=== PATIENT | male | born 1935 | race Caucasian/White ===

== ENCOUNTER 2021-03-13 06:39 | Inpatient (IN) | payer OTHER ==
[2021-03-13 06:47] VITALS: BMI 24.4
[2021-03-13 09:38] LABS: ACTIVATED PTT 36.3 SECONDS (25.2-36.5); INR 1.18 (0.83-1.09); PROTHROMBIN TIME (PATIENT) 14.5 SEC (9.7-13.0)
[2021-03-13 09:44] LABS: BASO % 0.4 % (0-2.0); WHITE BLOOD COUNT 9.8 K/mm3 (4.0-10.0)
[2021-03-13 09:53] LABS: EOS % 3.3 % (0-4.5); HEMATOCRIT 39.8 % (35.4-49); HEMOGLOBIN 13.3 GM/dL (11.7-16.9); LYMPH % 8.4 % (8-40); MCH 29.8 pg (25.7-33.7); MCHC 33.3 g/dl (32.0-35.9); MEAN CELL VOLUME 89.5 fl (80-96); MONO % 7.1 % (3.8-10.2); NEUT % 80.8 % (42.8-82.8); PLATELET COUNT 154 10^3/uL (134-434); RBC 4.45 M/mm3 (4.00-5.60); RDW 14.5 % (11.9-15.9)
[2021-03-13 10:00] LABS: CHLORIDE 110 mmol/L (98-107); SODIUM 141 mmol/L (136-145)
[2021-03-13 10:03] LABS: ANION GAP 6 MMOL/L (8-16); CALCIUM 8.6 mg/dL (8.5-10.1); CO2 24 mmol/L (21-32); GLUCOSE,RANDOM 82 mg/dL (74-106)
[2021-03-13 10:04] LABS: ALBUMIN 3.8 g/dl (3.4-5.0)
[2021-03-13 10:06] LABS: CREATININE 1.6 mg/dL (0.55-1.3); SGOT/AST 23 U/L (15-37)
[2021-03-13 10:07] LABS: SGPT/ALT 25 U/L (13-61)
[2021-03-13 10:08] LABS: BILIRUBIN,TOTAL 0.5 mg/dL (0.2-1); TOT PROT 7.2 g/dl (6.4-8.2)
[2021-03-13 10:09] LABS: ALK PHOS 54 U/L (45-117)
[2021-03-13 10:12] LABS: N-TERMINAL BNP 296.4 pg/ml (5-450)
[2021-03-13] MEDS ORDERED: ACETAMINOPHEN 325 MG TABLET (FP) PO PRN (11:36)
[2021-03-13 14:07] LABS: URINE APPEARANCE CLEAR; URINE BILIRUBIN NEGATIVE (NEGATIVE); URINE COLOR YELLOW; URINE GLUCOSE (UA) NEGATIVE (NEGATIVE); URINE KETONE NEGATIVE (NEGATIVE); URINE LEUK ESTERASE NEGATIVE (NEGATIVE); URINE NITRITE NEGATIVE (NEGATIVE); URINE PROTEIN TRACE (NEGATIVE); URINE UROBILINOGEN 0.2 mg/dL (0.2-1.0)
[2021-03-14 08:04] LABS: BASO % 0.5 % (0-2.0); EOS % 8.2 % (0-4.5); HEMATOCRIT 37.5 % (35.4-49); HEMOGLOBIN 12.7 GM/dL (11.7-16.9); LYMPH % 17.2 % (8-40); MCH 30.4 pg (25.7-33.7); MCHC 33.9 g/dl (32.0-35.9); MEAN CELL VOLUME 89.6 fl (80-96); MEAN PLT VOLUME 8.9 fl (7.5-11.1); MONO % 7.5 % (3.8-10.2); NEUT % 66.6 % (42.8-82.8); PLATELET COUNT 157 10^3/uL (134-434); RBC 4.18 M/mm3 (4.00-5.60); RDW 14.7 % (11.9-15.9); WHITE BLOOD COUNT 6.3 K/mm3 (4.0-10.0)
[2021-03-14] MEDS ORDERED: ALBUTEROL SO4 HFA INHALER IH PRN (16:30)
[2021-03-14] MEDS ORDERED: SODIUM CHLORIDE 1,000 ML IV SCH (16:45)
[2021-03-14] MEDS: amLODIPine BESYLATE 5 MG TABLET (FP) PO SCH (20:52)
[2021-03-14] MEDS: APIXABAN 2.5 MG TABLET PO SCH (21:44)
[2021-03-14] MEDS: ATORVASTATIN CA 20 MG TABLET (FP) PO SCH (21:44)
[2021-03-14] MEDS ORDERED: APIXABAN 5 MG TABLET PO SCH (22:00)
[2021-03-15 08:22] LABS: BASO % 0.5 % (0-2.0); HEMOGLOBIN 12.3 GM/dL (11.7-16.9); LYMPH % 20.1 % (8-40); MCH 30.3 pg (25.7-33.7); MCHC 34.2 g/dl (32.0-35.9); MEAN CELL VOLUME 88.5 fl (80-96); MEAN PLT VOLUME 8.4 fl (7.5-11.1); MONO % 7.9 % (3.8-10.2); NEUT % 62.5 % (42.8-82.8); PLATELET COUNT 142 10^3/uL (134-434); RBC 4.07 M/mm3 (4.00-5.60); RDW 14.5 % (11.9-15.9); WHITE BLOOD COUNT 5.8 K/mm3 (4.0-10.0)
[2021-03-15 08:38] LABS: CALCIUM 8.3 mg/dL (8.5-10.1)
[2021-03-15 08:39] LABS: MAGNESIUM 2.2 mg/dL (1.8-2.4)
[2021-03-15 08:42] LABS: CREATININE 1.5 mg/dL (0.55-1.3); PHOSPHOROUS 2.9 mg/dL (2.5-4.9)
[2021-03-15 08:43] LABS: BLOOD UREA NITROGEN 34.1 mg/dL (7-18)
[2021-03-15] MEDS ORDERED: ALLOPURINOL 300 MG TABLET (FP) PO SCH (10:00)
[2021-03-15] MEDS ORDERED: DONEPEZIL HCL 5 MG TABLET (FP) PO SCH (10:00)
[2021-03-15] MEDS: ALLOPURINOL 100 MG TABLET (FP) PO SCH (10:12)
[2021-03-15] MEDS: FINASTERIDE 5 MG TABLET (FP) PO SCH (10:12)
[2021-03-15] MEDS: ASPIRIN 81 MG CHEWABLE TABLETS PO SCH (10:13)
[2021-03-15] MEDS: TAMSULOSIN HCL 0.4 MG CAP PO SCH (10:13)
[2021-03-15] MEDS: APIXABAN 2.5 MG TABLET PO SCH ×2 (10:14→21:23)
[2021-03-15] MEDS ORDERED: SODIUM CHLORIDE 1,000 ML IV SCH (11:15)
[2021-03-15] MEDS: ATORVASTATIN CA 20 MG TABLET (FP) PO SCH (21:23)
[2021-03-15] MEDS: amLODIPine BESYLATE 5 MG TABLET (FP) PO SCH (21:23)
[2021-03-16 08:00] LABS: CALCIUM 8.4 mg/dL (8.5-10.1)
[2021-03-16 08:01] LABS: BASO % 0.6 % (0-2.0); BLOOD UREA NITROGEN 30.2 mg/dL (7-18); EOS % 9.1 % (0-4.5); HEMATOCRIT 37.3 % (35.4-49); HEMOGLOBIN 12.4 GM/dL (11.7-16.9); LYMPH % 21.6 % (8-40); MAGNESIUM 2.2 mg/dL (1.8-2.4); MCH 29.8 pg (25.7-33.7); MCHC 33.2 g/dl (32.0-35.9); MEAN CELL VOLUME 89.6 fl (80-96); MEAN PLT VOLUME 8.8 fl (7.5-11.1); MONO % 7.8 % (3.8-10.2); NEUT % 60.9 % (42.8-82.8); PLATELET COUNT 143 10^3/uL (134-434); RBC 4.16 M/mm3 (4.00-5.60); RDW 14.3 % (11.9-15.9); WHITE BLOOD COUNT 5.6 K/mm3 (4.0-10.0)
[2021-03-16 08:03] LABS: CREATININE 1.3 mg/dL (0.55-1.3)
[2021-03-16 08:04] LABS: PHOSPHOROUS 3.1 mg/dL (2.5-4.9)
[2021-03-16] MEDS: ALLOPURINOL 100 MG TABLET (FP) PO SCH (10:38)
[2021-03-16] MEDS: APIXABAN 2.5 MG TABLET PO SCH (10:38)
[2021-03-16] MEDS: ASPIRIN 81 MG CHEWABLE TABLETS PO SCH (10:38)
[2021-03-16] MEDS: FINASTERIDE 5 MG TABLET (FP) PO SCH (10:38)
[2021-03-16] MEDS: TAMSULOSIN HCL 0.4 MG CAP PO SCH (10:38)
[2021-03-16 12:41] VITALS: BP 122/81; PULSE 60; TEMP 98.3
== END 2021-03-16 19:08 | DRG 683 ==
LOC: JER 06:39 → JERBED 10:18 → OBSVTOIN 11:36 → J4W 21:56
PROVIDERS: ADMIT Internal Medicine; ATTEND Internal Medicine
DX: N17.9 Acute kidney failure, unspecified (principal); I13.0 Hypertensive heart and chronic kidney disease with heart failure and stage 1 through stage 4 chronic kidney disease, or unspecified chronic kidney disease; I50.32 Chronic diastolic (congestive) heart failure; R55 Syncope and collapse; F03.90 Unspecified dementia, unspecified severity, without behavioral disturbance, psychotic disturbance, mood disturbance, and anxiety; N40.0 Benign prostatic hyperplasia without lower urinary tract symptoms; N18.2 Chronic kidney disease, stage 2 (mild); M10.9 Gout, unspecified; M25.511 Pain in right shoulder; E86.0 Dehydration; W18.39XA Other fall on same level, initial encounter; Y92.092 Bedroom in other non-institutional residence as the place of occurrence of the external cause
CPT/HCPCS: 36415; 70450-TC; 71045-TC-FY; 72125-TC; 73030-TC-RT-FY; 80048; 80053; 81003; 82550; 82553; 83735; 83880; 84100; 84484; 85025; 85610; 85730; 87086; 93005; 93010; 93306-TC; 93880-TC; 97116-GP; 97162-GP; 99285-25; C9803; G0378; U0003; U0005

== ENCOUNTER 2021-07-28 00:11 | Observation (INO) | payer OTHER ==
[2021-07-28 01:05] VITALS: BMI 27.3
[2021-07-28 01:55] LABS: EOS % 7.1 % (0-4.5); HEMATOCRIT 38.2 % (35.4-49); HEMOGLOBIN 12.7 GM/dL (11.7-16.9); LYMPH % 14.1 % (8-40); MCH 29.1 pg (25.7-33.7); MCHC 33.3 g/dl (32.0-35.9); MEAN CELL VOLUME 87.5 fl (80-96); MEAN PLT VOLUME 8.6 fl (7.5-11.1); MONO % 7.2 % (3.8-10.2); NEUT % 70.6 % (42.8-82.8); PLATELET COUNT 148 10^3/uL (134-434); RBC 4.37 M/mm3 (4.00-5.60); RDW 14.9 % (11.9-15.9); WHITE BLOOD COUNT 6.4 K/mm3 (4.0-10.0)
[2021-07-28 02:07] LABS: INR 1.26 (0.83-1.09); PROTHROMBIN TIME (PATIENT) 14.5 SEC (9.7-13.0)
[2021-07-28 02:10] LABS: ACTIVATED PTT 35.4 SECONDS (25.2-36.5)
[2021-07-28 02:15] LABS: CALCIUM 8.9 mg/dL (8.5-10.1)
[2021-07-28 02:16] LABS: ALBUMIN 3.8 g/dl (3.4-5.0); BLOOD UREA NITROGEN 26.5 mg/dL (7-18); MAGNESIUM 2.3 mg/dL (1.8-2.4)
[2021-07-28 02:19] LABS: CREATININE 1.6 mg/dL (0.55-1.3); PHOSPHOROUS 3.4 mg/dL (2.5-4.9)
[2021-07-28 02:21] LABS: BILIRUBIN,TOTAL 0.3 mg/dL (0.2-1); TOT PROT 6.8 g/dl (6.4-8.2)
[2021-07-28 02:24] LABS: N-TERMINAL BNP 455.4 pg/ml (5-450)
[2021-07-28] MEDS ORDERED: DOCUSATE SODIUM 100 MG CAPSULE (FP) PO PRN (04:35)
[2021-07-28] MEDS ORDERED: SENNOSIDES 8.6MG TABLET (FP) PO PRN (04:35)
[2021-07-28] MEDS ORDERED: MELATONIN 5 MG TABLETS PO PRN (04:36)
[2021-07-28] MEDS: LACTATED RINGERS SOLUTION 1,000 ML/1,000 ML INFUS.BAG IV SCH (06:15)
[2021-07-28 08:23] LABS: BASO % 0.9 % (0-2.0); EOS % 9.2 % (0-4.5); HEMATOCRIT 38.1 % (35.4-49); HEMOGLOBIN 12.1 GM/dL (11.7-16.9); LYMPH % 15.7 % (8-40); MCH 28.5 pg (25.7-33.7); MCHC 31.9 g/dl (32.0-35.9); MEAN CELL VOLUME 89.2 fl (80-96); MEAN PLT VOLUME 9.4 fl (7.5-11.1); MONO % 8.8 % (3.8-10.2); NEUT % 65.4 % (42.8-82.8); PLATELET COUNT 148 10^3/uL (134-434); RBC 4.27 M/mm3 (4.00-5.60); RDW 14.8 % (11.9-15.9); WHITE BLOOD COUNT 5.6 K/mm3 (4.0-10.0)
[2021-07-28 08:48] LABS: ALBUMIN 3.4 g/dl (3.4-5.0); CALCIUM 8.8 mg/dL (8.5-10.1); MAGNESIUM 2.3 mg/dL (1.8-2.4)
[2021-07-28 08:49] LABS: BLOOD UREA NITROGEN 24.8 mg/dL (7-18)
[2021-07-28 08:51] LABS: CREATININE 1.4 mg/dL (0.55-1.3)
[2021-07-28 08:53] LABS: BILIRUBIN,TOTAL 0.4 mg/dL (0.2-1)
[2021-07-28] MEDS ORDERED: TETRAHYDROZOLINE HCL EYE DROPS OU PRN (15:44)
[2021-07-28 20:05] LABS: EPI CELLS 7 /uL (0-25.1); HYALINE CASTS 1 /uL (0-3.1); PH,URINE 6.5 (5.0-8.0); URINE APPEARANCE CLEAR; URINE BACTERIA 19 /uL (0-1359); URINE BILIRUBIN NEGATIVE (NEGATIVE); URINE COLOR YELLOW; URINE GLUCOSE (UA) NEGATIVE (NEGATIVE); URINE KETONE NEGATIVE (NEGATIVE); URINE LEUK ESTERASE TRACE (NEGATIVE); URINE NITRITE NEGATIVE (NEGATIVE); URINE PROTEIN NEGATIVE (NEGATIVE); URINE RBC 4 /uL (0-23.9); URINE UROBILINOGEN 0.2 mg/dL (0.2-1.0); URINE WBC 30 /uL (0-25.8)
[2021-07-29 08:18] LABS: HEMATOCRIT 34.8 % (35.4-49); HEMOGLOBIN 11.4 GM/dL (11.7-16.9); MCH 28.6 pg (25.7-33.7); MCHC 32.6 g/dl (32.0-35.9); MEAN CELL VOLUME 87.7 fl (80-96); MEAN PLT VOLUME 9.6 fl (7.5-11.1); PLATELET COUNT 145 10^3/uL (134-434); RBC 3.97 M/mm3 (4.00-5.60); RDW 14.7 % (11.9-15.9); WHITE BLOOD COUNT 4.6 K/mm3 (4.0-10.0)
[2021-07-29 08:44] LABS: CALCIUM 8.8 mg/dL (8.5-10.1)
[2021-07-29 08:45] LABS: BLOOD UREA NITROGEN 23.1 mg/dL (7-18)
[2021-07-29 08:46] LABS: CREATININE 1.3 mg/dL (0.55-1.3)
[2021-07-29] MEDS: LACTATED RINGERS SOLUTION 1,000 ML/1,000 ML INFUS.BAG IV SCH (09:31)
[2021-07-29 15:06] VITALS: BP 123/68; PULSE 67; TEMP 97.8
[2021-07-29] MEDS ORDERED: ATORVASTATIN CA 20 MG TABLET (FP) PO SCH (22:00)
[2021-07-30] MEDS ORDERED: ASPIRIN 81 MG CHEWABLE TABLETS PO SCH (10:00)
[2021-07-30] MEDS ORDERED: TAMSULOSIN HCL 0.4 MG CAP PO SCH (10:00)
== END 2021-07-29 17:00 ==
LOC: JER 00:11 → SUATTDRO 00:11 → JERBED 07:14 → J4W 12:54
PROVIDERS: ADMIT Internal Medicine; ATTEND Internal Medicine
PROC: 3E0337Z Introduction of Electrolytic and Water Balance Substance into Peripheral Vein, Percutaneous Approach (ICD-10-PCS; principal; 2021-07-28)
DX: I13.0 Hypertensive heart and chronic kidney disease with heart failure and stage 1 through stage 4 chronic kidney disease, or unspecified chronic kidney disease (principal); N18.2 Chronic kidney disease, stage 2 (mild); W18.39XA Other fall on same level, initial encounter; Y93.89 Activity, other specified; Y92.003 Bedroom of unspecified non-institutional (private) residence as the place of occurrence of the external cause; R55 Syncope and collapse; E78.5 Hyperlipidemia, unspecified; N40.0 Benign prostatic hyperplasia without lower urinary tract symptoms; M10.9 Gout, unspecified; N17.9 Acute kidney failure, unspecified; Z88.0 Allergy status to penicillin
CPT/HCPCS: 36415; 70450-TC; 71045-TC-FY; 72125-TC; 72170-TC-FY; 73030-TC-RT-FY; 76775-TC; 80048; 80053; 81003; 82550; 83605; 83735; 83880; 84100; 84443; 84484; 85025; 85027; 85610; 85730; 87086; 93005; 93010; 96360; 97116-GP; 97161-GP; 99285-25; C9803; G0378; U0003; U0005